=== PATIENT | male | born 1995 | race Caucasian/White ===

== ENCOUNTER 2016-07-05 02:26 | Emergency (ER) | payer OTHER ==
[2016-07-05 02:37] VITALS: RESP 18
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
[2016-07-05 06:06] VITALS: BP 115/71; PULSE 65; TEMP 97.8
== END 2016-07-05 06:06 | disposition home or self-care (01) ==
LOC: EC 02:26
DX: R45.4 Irritability and anger (principal); F43.20 Adjustment disorder, unspecified
CPT/HCPCS: 80306; 82075; 99285

== ENCOUNTER 2018-10-07 21:26 | Inpatient (IN) | payer MEDICARE, OTHER ==
[2018-10-07] MEDS ORDERED: DIPH,PERTUS(ACELL)TETVAC-LF 0.5 ML VIAL IM ONE (21:43)
[2018-10-07] MEDS ORDERED: LORazepam 2 MG/ML INJ IV STA (21:44)
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
[2018-10-07 22:01] LABS: Basophils % (A) 0 %; Eosinophils # (A) 0.1 k/uL (0-0.7); Eosinophils % (A) 1 %; HCT 39.1 % (39.0-53.0); HGB 13.8 gm/dL (13.0-17.5); Lymphocytes # (A) 0.9 k/uL (1.0-4.8); Lymphocytes % (A) 5 %; MCH 30.6 pg (25.0-35.0); MCHC 35.2 g/dL (31.0-37.0); MCV 87.2 fL (80.0-100.0); Monocytes # (A) 0.6 k/uL (0-1.0); Monocytes % (A) 3 %; Neutrophils # (A) 17.6 k/uL (1.3-7.7); Neutrophils % (A) 91 %; Platelet Count 211 k/uL (150-450); RBC 4.49 m/uL (4.30-5.90); RDW 12.9 % (11.5-15.5); WBC 19.3 k/uL (3.8-10.6)
[2018-10-07 22:09] LABS: Anion Gap 15 mmol/L; Blood Urea Nitrogen 13 mg/dL (9-20); Calcium 8.6 mg/dL (8.4-10.2); Carbon Dioxide 18 mmol/L (22-30); Chloride 105 mmol/L (98-107); Glucose 107 mg/dL (74-99); Potassium 3.7 mmol/L (3.5-5.1); Sodium 138 mmol/L (137-145)
[2018-10-07] MEDS ORDERED: KETAMINE 10 MG/ML 20 ML VIAL IV ONE (22:32)
[2018-10-07] MEDS ORDERED: KETAMINE 10 MG/ML 20 ML VIAL IV STA (22:46)
[2018-10-08 00:03] LABS: Amphetamine Screen,Urine Not Detected (NotDetected); Barbiturate Screen,Urine Not Detected (NotDetected); Benzodiazepines Screen,Urine Not Detected (NotDetected); Cocaine Screen,Urine Not Detected (NotDetected); Methadone Screen, Urine Not Detected (NotDetected); Opiate Screen,Urine Not Detected (NotDetected); Oxycodone Screen, Urine Not Detected (NotDetected); Phencyclidine Screen,Urine Not Detected (NotDetected); Tricyclic Antidepressant,Urine Not Detected (NotDetected); Urn Cannabinoid Scrn Not Detected (NotDetected)
[2018-10-08] MEDS ORDERED: MAG HYDROX/AL HYDROX/SIMETH 30 ML CUP PO PRN (03:36)
[2018-10-08] MEDS ORDERED: LORazepam 1 MG TAB PO PRN (03:36)
[2018-10-08] MEDS ORDERED: ZIPRASIDONE 20 MG VIAL IM PRN (03:36)
[2018-10-08] MEDS ORDERED: ACETAMINOPHEN TAB 325 MG TAB PO PRN (03:36)
[2018-10-08] MEDS ORDERED: MAGNESIUM HYDROXIDE 2,400 MG/10 ML CUP PO PRN (03:36)
[2018-10-08] MEDS ORDERED: risperiDONE 2 MG TAB PO SCH ×2 (03:45→21:00)
[2018-10-08 04:21] LABS: Appearance,Urine Clear (Clear); Bilirubin,Urine Negative (Negative); Blood,Urine Small (Negative); Color,Urine Light Yellow; Glucose,Urine (UA) Negative (Negative); Ketones,Urine Negative (Negative); Leukocyte Esterase,Urine Negative (Negative); Mucus,Urine Rare /hpf; Nitrite,Urine Negative (Negative); PH, Urine 5.5 (5.0-8.0); Protein,Urine Negative (Negative); RBC,Urine <1 /hpf (0-5); Specific Gravity,Urine 1.005 (1.001-1.035); Urobilinogen,Urine <2.0 mg/dL (<2.0); WBC,Urine 1 /hpf (0-5)
[2018-10-08] MEDS ORDERED: LIDOCAINE 1% INJ 10MG/ML (20 ML MDV) SQ ONE (10:52)
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
[2018-10-08] MEDS ORDERED: DIPH,PERTUS(ACELL)TETVAC-LF 0.5 ML VIAL IM ONE (13:39)
--- NOTE | 2018-10-08 13:49 | P.HPMEDMHU ---
History of Present Illness H&P Date: 10/08/18 Chief Complaint: left leg bleeding Patient is a 23-year-old male with no known past medical history he was brought in by EMS for lower extremity lacerations. Patient was refusing to tell the ER what happened. He had multiple tayler deployed into his left lower extremity in the ER and was subsequently admitted to the mental health unit. Called by mental health nursing with concerns for bleeding from left lower extremity. Apparently he was actively oozing and squirting blood consult for multiple dressings. Patient seen and examined at bedside in his room. He refuses to answer any questions. He asked me to just "fix his leg so he can later not have the bleed." He will not tell me what happened to his leg or how the lacerations occurred. He was unable to tell me who his PCP is. He would not answer any questions or tell me who he will follow up with. He would not answer my questions about past medical, surgical history, social history, and family history. Information was obtained from review of medical records including prior hospitalization in 2016. Review of prior hospitalization shows history of Lyme's disease, gluten intolerance, possible Gilbert's disease was slightly abnormal bilirubin. Review of Systems Unable to obtain review of systems secondary to patient being noncompliant refusing to answer questions. Past Medical History Additional Past Medical History / Comment(s): Lymes disease. Gluten intolerance. 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 History of Any Multi-Drug Resistant Organisms: None Reported Past Surgical History: Hernia Repair Past Psychological History: No Psychological Hx Reported Smoking Status: Never smoker Past Alcohol Use History: None Reported Past Drug Use History: None Reported - Past Family History Mother History Unknown: Yes Additional Family Medical History / Comment(s): Pt refuses to answer. Father History Unknown: Yes Additional Family Medical History / Comment(s): Pt refuses to answer. Medications and Allergies Home Medications Medication Instructions Recorded Confirmed Type risperiDONE [RisperDAL] 2 mg PO DIRECTED 10/07/18 10/07/18 History Allergies Allergy/AdvReac Type Severity Reaction Status Date / Time No Known Allergies Allergy Verified 10/07/18 21:46 Physical Exam Osteopathic Statement: *. No significant issues noted on an osteopathic structural exam other than those noted in the History and Physical/Consult. Vitals: Vital Signs Temp Pulse Pulse Resp BP BP Pulse Ox 10/08/18 04:17 97.1 F L 111 H 16 127/73 97 10/08/18 03:56 98.5 F 101 H 16 97/54 100 10/08/18 03:50 97/54 10/08/18 03:40 99 14 96/52 10/08/18 03:30 101 H 14 98/52 10/08/18 03:20 102 H 14 92/54 10/08/18 03:10 101 H 14 98/49 10/08/18 03:00 96 15 101/56 10/08/18 02:50 93 16 100/63 10/08/18 02:40 100 17 103/53 10/08/18 02:30 105 H 20 97/57 10/08/18 02:20 125 H 20 101/84 10/08/18 02:00 113 H 16 96/50 10/08/18 01:50 128 H 6 L 100/75 10/08/18 01:40 118 H 18 104/55 10/08/18 01:30 123 H 20 97/58 10/08/18 01:20 116 H 22 94/57 10/08/18 00:50 122 H 16 110/62 10/08/18 00:40 122 H 16 122/86 10/08/18 00:30 135 H 15 110/76 10/08/18 00:20 126 H 8 L 112/87 95 10/08/18 00:10 128 H 8 L 105/74 95 10/08/18 00:00 130 H 22 96/62 95 10/07/18 23:40 131 H 15 126/84 97 10/07/18 23:30 130 H 15 154/96 99 10/07/18 23:25 133 H 16 154/96 99 10/07/18 23:20 145 H 16 148/84 99 10/07/18 23:18 146 H 24 148/84 99 10/07/18 23:15 147 H 16 100 10/07/18 23:10 116 H 10 L 104/67 100 10/07/18 23:00 124 H 22 99/75 10/07/18 22:20 124 H 22 99/75 10/07/18 21:40 107/79 98 10/07/18 21:35 99 10/07/18 21:31 98.1 F 138 H 16 107/7 99 Intake and Output 10/07/18 10/08/18 10/08/18 22:59 06:59 14:59 Other: Weight 64 kg General: non toxic, no distress, appears at stated age, normal weight Derm: Multiple lacerations to left pretibial area approximately 7 laceration each 3 cm in length, tayler in place, continued oozing of blood. no unusual rashes/lesions no unusual ecchymoses, warm, dry Head: atraumatic, normocephalic, symmetric Eyes: EOMI, no lid lag, anicteric sclera, pupils equal round reactive to light ENT: Nose and ears atraumatic, no thrush, no pharyngeal erythema Neck: No thyromegaly, no cervical lymphadenopathy, trachea midline, supple Mouth: no lip lesion, mucus membranes moist Cardiovascular: S1S2 reg, no murmur, positive posterior tibial pulse bilateral, no edema, capillary refill less than 2 seconds Lungs: CTA bilateral, no rhonchi, no rales , no accessory muscle use Abdominal: Patient does not allow me to examine abdominal area Ext: Moving all 4 extremities independently, no gross muscle atrophy or contrac tures Neuro: CN II-XI grossly intact, light touch intact all 4 extremities, Psych: Alert, oriented, appears easily agitated, refuses to answer questions, withdrawn Cranial Nerve Examination - Cranial Nerves Cranial Nerve II- Optic: Intact (refused exam for acuity and visual field and light reflex) Cranial Nerve III- Oculomotor: Intact (refused exam for acuity and visual field and light reflex) Cranial Nerve IV- Trochlear: Intact Cranial Nerve V- Trigeminal: Intact Cranial Nerve - Abducens: Intact Cranial Nerve VII- Facial: Intact Cranial Nerve VIII- Auditory: Intact Cranial Nerve IX- Glossopharyngeal: Intact Cranial Nerve X- Vagus: Intact Cranial Nerve XI- Accessory: Intact Cranial Nerve XII- Hypoglossal: Intact Results CBC & Chem 7: 10/07/18 21:51 10/07/18 21:51 Labs: Abnormal Lab Results - Last 24 Hours (Table) 10/07/18 10/07/18 10/08/18 Range/Units 21:51 21:51 03:56 WBC 19.3 H (3.8-10.6) k/uL Neutrophils # 17.6 H (1.3-7.7) k/uL Lymphocytes # 0.9 L (1.0-4.8) k/uL Carbon Dioxide 18 L (22-30) mmol/L Creatinine 0.56 L (0.66-1.25) mg/dL Glucose 107 H (74-99) mg/dL Urine Blood Small H (Negative) Urine Mucus Rare H (None) /hpf Thrombosis Risk Factor Assmnt - DVT/VTE Prophylaxis DVT/VTE Prophylaxis: Low risk, early ambulation encouraged Assessment and Plan Assessment: Multiple left lower extremity lacerations -Patient already had 44 tayler placed in the ER, secondary to continued bleeding deployed an additional 5 tayler - Keep area covered and dry, change dressing once daily with nursing to assess for drainage, warmth, or dehiscence -Remove tayler in 10-14 days with PCP. Nursing will contact family to dete reji who he will follow with -Had slightly elevated white blood cell count yesterday we'll repeat in a.m. Leukocytosis -Patient uncooperative and physical exam to pinpoint cause of leukocytosis. Nedra jameson stress related due to multiple lacerations. Repeat CBC in a.m. Follow fever profile. acute psychosis - your [facility] Thank you for allowing us to participate in the care of this patient. We will follow peripherally. Do not hesitate to contact us with questions. Someone can be reached from the [facility] hospitalist group at all hours of the day at [phone].
[2018-10-08] MEDS ORDERED: TOPICAL SKIN ADHESIVE 1 EACH AMP TOPICAL ONE (14:56)
[2018-10-08] MEDS ORDERED: LORazepam 2 MG/ML INJ IM PRN (15:08)
[2018-10-08] MEDS: BACITRACIN 500 UNIT/GM OINT 28.4 GM TUBE TOPICAL SCH (18:05)
[2018-10-08] MEDS: PALIPERIDONE 3 MG TAB.ER.24 PO SCH ×2 (21:31→21:33)
[2018-10-09] MEDS: BACITRACIN 500 UNIT/GM OINT 28.4 GM TUBE TOPICAL SCH ×2 (08:29→20:53)
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
[2018-10-09] MEDS ORDERED: flUPHENAZine 2.5 MG/ML (MDV) 10 ML VIAL IM SCH (16:00)
[2018-10-09] MEDS ORDERED: PALIPERIDONE 6 MG TAB.ER.24 PO SCH (21:00)
[2018-10-10] MEDS: BACITRACIN 500 UNIT/GM OINT 28.4 GM TUBE TOPICAL SCH ×2 (13:17→21:35)
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
[2018-10-11] MEDS: BACITRACIN 500 UNIT/GM OINT 28.4 GM TUBE TOPICAL SCH ×2 (09:43→22:55)
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
[2018-10-12] MEDS: BACITRACIN 500 UNIT/GM OINT 28.4 GM TUBE TOPICAL SCH ×3 (08:35→21:23)
--- NOTE | 2018-10-12 15:14 | P.PN ---
Progress Note - Text Progress Note Date: 10/12/18 Interval history: Patient is seen in cross coverage today. I went to the patient's room to inquire regarding meeting with him today, he refuses today. I did inform the patient that I would follow up with him tomorrow. Mental status exam: Patient is found in his room lying in bed. He refuses the meeting today. He did not show any agitation. Plan: We will reattempt to meet with patient tomorrow. We'll continue to cover this patient to the weekend.
[2018-10-13] MEDS: BACITRACIN 500 UNIT/GM OINT 28.4 GM TUBE TOPICAL SCH ×2 (08:20→21:07)
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
[2018-10-14] MEDS: BACITRACIN 500 UNIT/GM OINT 28.4 GM TUBE TOPICAL SCH ×2 (09:31→21:05)
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
[2018-10-15] MEDS: BACITRACIN 500 UNIT/GM OINT 28.4 GM TUBE TOPICAL SCH ×2 (09:06→20:31)
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
[2018-10-16] MEDS: BACITRACIN 500 UNIT/GM OINT 28.4 GM TUBE TOPICAL SCH ×2 (10:50→20:57)
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
[2018-10-16] MEDS ORDERED: diphenhydrAMINE 50 MG/ML 1 ML VIAL IM PRN (16:07)
[2018-10-16] MEDS: chlorproMAZINE 25 MG/ML 2 ML AMP IM PRN (16:37)
[2018-10-17] MEDS: BACITRACIN 500 UNIT/GM OINT 28.4 GM TUBE TOPICAL SCH ×2 (08:37→21:23)
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
[2018-10-17] MEDS ORDERED: LORazepam 2 MG/ML INJ IM PRN (14:38)
[2018-10-17] MEDS ORDERED: PALIPERIDONE 3 MG TAB.ER.24 PO SCH (21:00)
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
[2018-10-18] MEDS: BACITRACIN 500 UNIT/GM OINT 28.4 GM TUBE TOPICAL SCH ×2 (10:00→20:41)
[2018-10-18 11:58] LABS: ALT 26 U/L (21-72); AST 28 U/L (17-59); Albumin 4.2 g/dL (3.5-5.0); Alkaline Phosphatase 46 U/L (38-126); Anion Gap 8 mmol/L; Blood Urea Nitrogen 12 mg/dL (9-20); Calcium 9.4 mg/dL (8.4-10.2); Carbon Dioxide 27 mmol/L (22-30); Chloride 102 mmol/L (98-107); Glucose 83 mg/dL (74-99); Potassium 4.3 mmol/L (3.5-5.1); Sodium 137 mmol/L (137-145); Total Bilirubin 0.7 mg/dL (0.2-1.3); Total Protein 6.2 g/dL (6.3-8.2)
[2018-10-18 12:02] LABS: Basophils % (A) 0 %; Eosinophils # (A) 0.1 k/uL (0-0.7); Eosinophils % (A) 1 %; HCT 36.4 % (39.0-53.0); HGB 12.3 gm/dL (13.0-17.5); Lymphocytes % (A) 21 %; MCH 30.8 pg (25.0-35.0); MCHC 33.8 g/dL (31.0-37.0); MCV 91.1 fL (80.0-100.0); Mean Platelet Volume 7.5; Monocytes # (A) 0.3 k/uL (0-1.0); Monocytes % (A) 7 %; Neutrophils # (A) 3.2 k/uL (1.3-7.7); Neutrophils % (A) 69 %; Platelet Count 272 k/uL (150-450); Poikilocytosis Slight; RBC 3.99 m/uL (4.30-5.90); RDW 14.9 % (11.5-15.5); WBC 4.6 k/uL (3.8-10.6)
[2018-10-18] MEDS: PALIPERIDONE 6 MG TAB.ER.24 PO SCH (20:41)
[2018-10-19] MEDS: BACITRACIN 500 UNIT/GM OINT 28.4 GM TUBE TOPICAL SCH ×2 (08:37→21:18)
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
[2018-10-19] MEDS: PALIPERIDONE 6 MG TAB.ER.24 PO SCH (21:12)
[2018-10-20] MEDS: BACITRACIN 500 UNIT/GM OINT 28.4 GM TUBE TOPICAL SCH ×2 (07:58→21:36)
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
[2018-10-20] MEDS: PALIPERIDONE 6 MG TAB.ER.24 PO SCH (21:31)
[2018-10-21] MEDS: BACITRACIN 500 UNIT/GM OINT 28.4 GM TUBE TOPICAL SCH ×3 (09:19→22:09)
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
[2018-10-21] MEDS: chlorproMAZINE 25 MG/ML 2 ML AMP IM PRN (22:25)
[2018-10-21] MEDS: PALIPERIDONE 3 MG TAB.ER.24 PO SCH (22:25)
[2018-10-22] MEDS: BACITRACIN 500 UNIT/GM OINT 28.4 GM TUBE TOPICAL SCH ×2 (09:01→23:06)
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
[2018-10-22] MEDS: PALIPERIDONE 3 MG TAB.ER.24 PO SCH (22:14)
[2018-10-23] MEDS: BACITRACIN 500 UNIT/GM OINT 28.4 GM TUBE TOPICAL SCH ×2 (09:40→20:38)
[2018-10-23] MEDS ORDERED: PALIPERIDONE IM 234 MG/1.5 ML SYG IM STA (12:16)
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
[2018-10-24] MEDS: BACITRACIN 500 UNIT/GM OINT 28.4 GM TUBE TOPICAL SCH ×2 (09:02→22:13)
[2018-10-24 10:14] VITALS: BMI 19.8
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
[2018-10-25] MEDS: BACITRACIN 500 UNIT/GM OINT 28.4 GM TUBE TOPICAL SCH ×2 (09:54→20:19)
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
[2018-10-26 06:49] VITALS: RESP 16
[2018-10-26] MEDS: BACITRACIN 500 UNIT/GM OINT 28.4 GM TUBE TOPICAL SCH ×2 (08:06→20:55)
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
[2018-10-27] MEDS: BACITRACIN 500 UNIT/GM OINT 28.4 GM TUBE TOPICAL SCH ×2 (08:52→22:03)
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
[2018-10-28 07:08] VITALS: BP 98/55; PULSE 66; TEMP 97.8
[2018-10-28] MEDS: BACITRACIN 500 UNIT/GM OINT 28.4 GM TUBE TOPICAL SCH ×2 (08:46→21:51)
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
[2018-10-28] MEDS: PALIPERIDONE 3 MG TAB.ER.24 PO SCH (21:49)
[2018-10-29] MEDS: BACITRACIN 500 UNIT/GM OINT 28.4 GM TUBE TOPICAL SCH ×2 (09:44→21:31)
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
[2018-10-29] MEDS: PALIPERIDONE 3 MG TAB.ER.24 PO SCH (20:43)
[2018-10-30] MEDS: BACITRACIN 500 UNIT/GM OINT 28.4 GM TUBE TOPICAL SCH (08:09)
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
--- NOTE | 2018-10-31 11:04 | CDI ---
Documentation Clarification Form Date: 10/31/2018 10:51:25 AM From: Rosana Newman Phone: If you have a question about this query, please contact Radha [employer] Consultant at [phone] between 8am and 5pm. Admit Date: 10/08/2018 3:32:00 AM Patient Name: Yifan Hubbard Visit Number: [id number] Discharge Date: 10/30/2018 1:46:00 PM ATTENTION: The Clinical Documentation Specialists (CDI) and [facility] Coding Staff appreciate your assistance in clarifying documentation. Please respond to the clarification below the line at the bottom and electronically sign. The CDI & [facility] Coding staff will review the response and follow-up if needed. Please note: Queries are made part of the Legal Health Record. If you have any questions, please contact the author of this message via ITS. Dr. Pepito Villarreal: ER Procedure notes document [address] for multiple lacerations of lower extremity. Please specify which part of lower of extremeity and whether it was right, left or bilateral. History/Risk factors: Right though laceration, medial left LE laceration, right lateral laceration LE Pre-Operative Diagnosis:Laceration Postoperative Diagnosis: Laceratioin Treatment: 44 tayler placed In order to capture the severity of condition, please specify the following: Anatomical site of the body system on which the procedure is performed Lower extremity: Upper leg Lower leg Foot Laterality: Right Left Bilateral MTDD
== END 2018-10-30 13:46 | disposition home or self-care (01) | DRG 885 ==
LOC: EC 21:26 → 3MHU 10-08 03:32
PROVIDERS: ADMIT Psychiatry & Neurology Psychiatry; ATTEND Psychiatry & Neurology Psychiatry
PROC: 0JQP3ZZ Repair Left Lower Leg Subcutaneous Tissue and Fascia, Percutaneous Approach (ICD-10-PCS; principal; 2018-10-08)
PROC: 0JQ Subcutaneous Tissue and Fascia, Repair (ICD-10-PCS; 2018-10-08)
DX: F20.9 Schizophrenia, unspecified (principal); R45.851 Suicidal ideations; K90.41 Non-celiac gluten sensitivity; S71.111A Laceration without foreign body, right thigh, initial encounter; S81.812A Laceration without foreign body, left lower leg, initial encounter; F84.5 Asperger's syndrome; Z86.19 Personal history of other infectious and parasitic diseases; Y28.9XXA Contact with unspecified sharp object, undetermined intent, initial encounter; Z79.899 Other long term (current) drug therapy; E80.4 Gilbert syndrome; D72.829 Elevated white blood cell count, unspecified
CPT/HCPCS: 12001; 36415; 80048; 80053; 80306; 80320; 81001; 84443; 85025; 96374; 99152; 99285

== ENCOUNTER → 2019-03-26 | Outpatient (CLI) | payer MEDICARE, OTHER ==
[2019-03-26 18:05] LABS: Albumin 4.4 g/dL (3.80-4.90); Albumin/Globulin Ratio 2.59 (1.60-3.17); Anion Gap 11.8 mmol/L (4.00-12.00); BUN/Creat Ratio 16.25 Ratio (12.00-20.00); Bilirubin, Conjugated 0.2 mg/dL (0.20-0.40); Bilirubin,Unconjugated 0.7 mg/dL; Calcium 9.3 mg/dL (8.7-10.3); Carbon Dioxide 22.2 mmol/L (21.6-31.8); Chol/HDL Ratio 6.31; Globulin 1.7 g/dL (1.6-3.3); LDL Cholesterol,Calculated 157.2 mg/dL (0.0-131.0); Potassium 4.6 mmol/L (3.5-5.5); Total Bilirubin 0.9 mg/dL (0.3-1.2); Total Protein 6.1 g/dL (6.2-8.2); VLDL Calculation 33.8 mg/dL (5.00-40.00)
[2019-03-26 18:30] LABS: Hemoglobin A1C 4.1 % (4.0-6.0)
== END ==
LOC: LABWHC1 09:57
PROVIDERS: ATTEND Psychiatry & Neurology Psychiatry
DX: Z51.81 Encounter for therapeutic drug level monitoring (principal); Z79.899 Other long term (current) drug therapy
CPT/HCPCS: 36415; 80048; 80061; 80076; 83036; 84439; 84443

== ENCOUNTER → 2019-06-17 | Outpatient (CLI) | payer MEDICARE, OTHER | LOC: LABWHC1 10:38 | PROVIDERS: ATTEND Psychiatry & Neurology Psychiatry | DX: Z51.81 Encounter for therapeutic drug level monitoring (principal); Z79.899 Other long term (current) drug therapy | CPT/HCPCS: 36415; 84146 ==

== ENCOUNTER → 2019-12-23 | Outpatient (CLI) | payer MEDICARE, OTHER ==
[2019-12-23 17:04] LABS: Chol/HDL Ratio 6.13
[2019-12-23 17:13] LABS: T4, Free (Free Thyroxine) 1.5 ng/dL (0.80-1.80)
[2019-12-23 18:47] LABS: Hemoglobin A1C 4.6 % (4.0-6.0)
== END | disposition home or self-care (01) ==
LOC: LABWHC1 10:43
PROVIDERS: ATTEND Psychiatry & Neurology Psychiatry
DX: Z51.81 Encounter for therapeutic drug level monitoring (principal); Z79.899 Other long term (current) drug therapy
CPT/HCPCS: 36415; 80061; 80342; 82947; 83036; 84146; 84439; 84443

== ENCOUNTER → 2020-11-24 | Outpatient (CLI) | payer MEDICARE, OTHER ==
[2020-11-24 22:32] LABS: Hemoglobin A1C 4.6 % (4.0-6.0)
[2020-11-25 00:32] LABS: Chol/HDL Ratio 5.59; LDL Cholesterol,Calculated 70.4 mg/dL (0.0-131.0); VLDL Calculation 53.6 mg/dL (5.00-40.00)
[2020-11-25 00:40] LABS: T4, Free (Free Thyroxine) 1.3 ng/dL (0.80-1.80)
== END | disposition home or self-care (01) ==
LOC: LABWHC1 11:29
PROVIDERS: ATTEND Psychiatry & Neurology Psychiatry
DX: Z79.899 Other long term (current) drug therapy (principal)
CPT/HCPCS: 36415; 80061; 82947; 83036; 84439; 84443

== ENCOUNTER → 2022-01-10 | Outpatient (CLI) | payer MEDICARE, OTHER ==
[2022-01-10 18:53] LABS: Chol/HDL Ratio 6.67 Ratio; Glucose 99 mg/dL (70-110); LDL Cholesterol,Calculated 111.2 mg/dL (0.0-131.0)
== END | disposition home or self-care (01) ==
LOC: LABWHC1 11:24
PROVIDERS: ATTEND Psychiatry & Neurology Psychiatry
DX: F20.9 Schizophrenia, unspecified (principal); Z79.899 Other long term (current) drug therapy
CPT/HCPCS: 36415; 80061; 82947; 83036; 84439; 84443

== ENCOUNTER → 2023-08-14 | Outpatient (CLI) | payer MEDICARE ==
[2023-08-14 16:13] LABS: ALT 128 U/L (10-49); AST 43 U/L (14-35); Albumin 4.5 g/dL (3.8-4.9); Albumin/Globulin Ratio 2.25 Ratio (1.60-3.17); Alkaline Phosphatase 77 U/L (41-126); BUN/Creat Ratio 15.43 Ratio (12.00-20.00); Blood Urea Nitrogen 10.8 mg/dL (9.0-27.0); Calcium 9.6 mg/dL (8.7-10.3); Carbon Dioxide 22.9 mmol/L (21.6-31.8); Chloride 104 mmol/L (96-109); Chol/HDL Ratio 7.49 Ratio; Glucose 93 mg/dL (70-110); LDL Cholesterol,Calculated 102.5 mg/dL (0.0-131.0); Potassium 4.2 mmol/L (3.5-5.5); Sodium 140 mmol/L (135-145); T4, Free (Free Thyroxine) 1.07 ng/dL (0.80-1.80); Total Bilirubin 0.3 mg/dL (0.3-1.2); Total Protein 6.5 g/dL (6.2-8.2)
[2023-08-14 16:20] LABS: Basophils # (A) 0.04 X 10*3/uL (0.00-0.10); Basophils % (A) 0.7 %; Eosinophils # (A) 0.12 X 10*3/uL (0.04-0.35); HCT 45.3 % (39.6-50.0); HGB 15.9 g/dL (13.0-17.0); Lymphocytes # (A) 2.25 X 10*3/uL (0.90-5.00); Lymphocytes % (A) 36.6 %; MCH 29.4 pg (27.0-32.0); MCHC 35.1 g/dL (32.0-37.0); MCV 83.7 FL (80.0-97.0); Mean Platelet Volume 11.4 FL (9.5-12.2); Monocytes # (A) 0.62 X 10*3/uL (0.20-1.00); Monocytes % (A) 10.1 %; NRBC Per 100 WBC 0 X 10*3/uL (0.00-0.01); Neutrophils # (A) 3.09 X 10*3/uL (1.80-7.70); Neutrophils % (A) 50.3 %; Platelet Count 195 X 10*3/uL (140-440); RBC 5.41 X 10*6/uL (4.40-5.60); RDW 12.4 % (11.5-14.5); WBC 6.14 X 10*3/uL (4.50-10.00)
== END | disposition home or self-care (01) ==
LOC: LABWHC1 09:09
PROVIDERS: ATTEND Psychiatry & Neurology Psychiatry
DX: F20.9 Schizophrenia, unspecified (principal); Z79.899 Other long term (current) drug therapy
CPT/HCPCS: 36415; 80053; 80061; 82306; 83036; 84146; 84439; 84443; 85025

== ENCOUNTER 2023-09-23 04:23 | Emergency (ER) | payer MEDICARE ==
--- NOTE | 2023-09-23 04:30 | ED ---
Psych HPI <Tami Hudson - Last Filed: 09/23/23 21:13> - General Source: RN notes reviewed, old records reviewed Limitations: no limitations, altered mental status - History of Present Illness MD Complaint: suicidal ideation, feels depressed -: days(s) Associated Psychiatric Symptoms: depression, suicidal ideation History of same: Yes Quality: constant, getting worse Improves With: none Worsens With: none Associated Symptoms: denies other symptoms Treatments Prior to Arrival: placed on mental health hold If Self Harm: admits thoughts of self harm <Nagi Gonzalez - Last Filed: 10/02/23 22:33> - General Stated Complaint: Mental Health Time Seen by Provider: 09/23/23 04:28 - History of Present Illness Initial Comments: This is a 28-year-old male for ER, patient is acutely psychotic. Patient arrives for mental health disease, patient states he has concern for Lyme dis ease or measles (Nagi Gonzalez) - Related Data Previous Rx's Medication Instructions Recorded Paliperidone [Invega] 3 mg PO 2100 30 Days #30 tab.er.[id number] 10/30/18 Allergies Allergy/AdvReac Type Severity Reaction Status Date / Time No Known Allergies Allergy Verified 10/30/18 00:59 Review of Systems ROS Other: All systems not noted in ROS Statement are negative. <Tami Hudson P - Last Filed: 09/23/23 21:13> ROS Other: All systems not noted in ROS Statement are negative. <Nagi Gonzalez - Last Filed: 10/02/23 22:33> ROS Statement: Those systems with pertinent positive or pertinent negative responses have been documented in the HPI. Past Medical History Past Medical History: No Reported History Additional Past Medical History / Comment(s): Lymes disease. History of Any Multi-Drug Resistant Organisms: None Reported Past Surgical History: Hernia Repair Past Psychological History: No Psychological Hx Reported Past Alcohol Use History: None Reported Past Drug Use History: None Reported - Past Family History Mother History Unknown: Yes Additional Family Medical History / Comment(s): Pt refuses to answer. Father History Unknown: Yes Additional Family Medical History / Comment(s): Pt refuses to answer. <Nagi Gonzalez - Last Filed: 10/02/23 22:33> General Exam General appearance: alert, in no apparent distress Head exam: Present: atraumatic, normocephalic, normal inspection Eye exam: Present: normal appearance, PERRL, EOMI. Absent: scleral icterus, conjunctival injection, periorbital swelling ENT exam: Present: normal exam, mucous membranes moist Neck exam: Present: normal inspection. Absent: tenderness, meningismus, lymphadenopathy Respiratory exam: Present: normal lung sounds bilaterally. Absent: respiratory distress, wheezes, rales, rhonchi, stridor Cardiovascular Exam: Present: regular rate, normal rhythm, normal heart sounds. Absent: systolic murmur, diastolic murmur, rubs, gallop, clicks GI/Abdominal exam: Present: soft, normal bowel sounds. Absent: distended, tenderness, guarding, rebound, rigid Extremities exam: Present: normal inspection, full ROM, normal capillary refill. Absent: tenderness, pedal edema, joint swelling, calf tenderness Back exam: Present: normal inspection Neurological exam: Present: alert, oriented X3, CN II-XII intact Psychiatric exam: Present: normal affect, normal mood Skin exam: Present: warm, dry, intact, normal color. Absent: rash <Nagi Gonzalez - Last Filed: 10/02/23 22:33> Course <Nagi Gonzalez - Last Filed: 10/02/23 22:33> Vital Signs 09/23/23 09/23/23 09/23/23 04:30 05:06 17:55 Temperature 97.8 F 97.6 F Pulse Rate 112 H 104 H Respiratory 16 16 18 Rate Blood Pressure 151/109 139/99 130/86 O2 Sat by Pulse 98 97 Oximetry 09/23/23 09/23/23 19:30 21:59 Temperature 97.5 F L 97.9 F Pulse Rate 99 99 Respiratory 13 13 Rate Blood Pressure 126/90 134/98 O2 Sat by Pulse 97 98 Oximetry - Reevaluation(s) Reevaluation #1: 09/23/23 07:14 Medical records reviewed (Nagi Gonzalez) Reevaluation #2: 09/23/23 07:14 Medically cleared for psychiatric evaluation (Nagi Gonzalez) Medical Decision Making - Lab Data Result diagrams: 09/23/23 13:26 09/23/23 13:26 <Tami Hudson - Last Filed: 09/23/23 21:13> - Lab Data Result diagrams: 09/23/23 13:26 09/23/23 13:26 <Nagi Gonzalez - Last Filed: 10/02/23 22:33> - Medical Decision Making Was patient admitted / discharged? Hospital course, mention meds given and route, prescriptions, significant lab abnormalities, going to OR and other pertinent info. @ -Transfer to psychiatric hospital Patient was initially seen and evaluated by Dr. Lyons. I took over care of pending workup and disposition. Patient was medically cleared for EPS evaluation and they recommended inpatient care. Upon my evaluation the patient admits to auditory hallucinations and having fits of rage due to these hallucinations. I completed a psychiatric certification form. Patient will be transferred for acute psychosis. Undiagnosed new problem with uncertain prognosis? @ -Yes Drug Therapy requiring intensive monitoring for toxicity (Heparin, Nitro, Insulin, Cardizem)? @ -No Were any procedures done? @ -No Diagnosis/symptom? @ -Acute psychosis Acute, or Chronic, or Acute on Chronic? @ -Acute Uncomplicated (without systemic symptoms) or Complicated (systemic symptoms)? @ -Default Side effects of treatment? @ -No Exacerbation, Progression, or Severe Exacerbation? @ -No Poses a threat to life or bodily function? How? (Chest pain, [place], [place], pneumonia, PE, COPD, DKA, ARF, appy, cholecystitis, CVA, Diverticulitis, Homicidal, Suicidal, threat to staff... and all critical care pts) @ -Yes could result in injury to self or others (Tami Hudson) - Lab Data Lab Results 09/23/23 09/23/23 09/23/23 Range/Units 13:26 13:26 13:26 WBC 6.0 (3.8-10.6) k/uL RBC 5.11 (4.30-5.90) m/uL Hgb 15.6 (13.0-17.5) gm/dL Hct 44.4 (39.0-53.0) % MCV 86.9 (80.0-100.0) fL MCH 30.6 (25.0-35.0) pg MCHC 35.2 (31.0-37.0) g/dL RDW 13.0 (11.5-15.5) % Plt Count 173 (150-450) k/uL MPV 9.0 Sodium 138 (137-145) mmol/L Potassium 3.8 (3.5-5.1) mmol/L Chloride 104 (98-107) mmol/L Carbon Dioxide 20 L (22-30) mmol/L Anion Gap 14 mmol/L BUN 11 (9-20) mg/dL Creatinine 0.75 (0.66-1.25) mg/dL Est GFR (CKD-EPI)AfAm >90 (>60 ml/min/1.73 sqM) Est GFR (CKD-EPI)NonAf >90 (>60 ml/min/1.73 sqM) Glucose 136 H (74-99) mg/dL Calcium 9.6 (8.4-10.2) mg/dL Total Bilirubin 0.6 (0.2-1.3) mg/dL AST 44 (17-59) U/L ALT 90 H (4-49) U/L Alkaline Phosphatase 72 (38-126) U/L Total Protein 6.7 (6.3-8.2) g/dL Albumin 4.4 (3.5-5.0) g/dL Urine Opiates Screen Not Detected (NotDetected) Ur Oxycodone Screen Not Detected (NotDetected) Urine Methadone Screen Not Detected (NotDetected) Ur Barbiturates Screen Not Detected (NotDetected) U Tricyclic Antidepress Not Detected (NotDetected) Ur Phencyclidine Scrn Not Detected (NotDetected) Ur Amphetamines Screen Not Detected (NotDetected) U Methamphetamines Scrn Not Detected (NotDetected) U Benzodiazepines Scrn Not Detected (NotDetected) Urine Cocaine Screen Not Detected (NotDetected) U Marijuana (THC) Screen Not Detected (NotDetected) SARS-CoV-2 (PCR) (Not Detectd) 09/23/23 Range/Units 14:03 WBC (3.8-10.6) k/uL RBC (4.30-5.90) m/uL Hgb (13.0-17.5) gm/dL Hct (39.0-53.0) % MCV (80.0-100.0) fL MCH (25.0-35.0) pg MCHC (31.0-37.0) g/dL RDW (11.5-15.5) % Plt Count (150-450) k/uL MPV Sodium (137-145) mmol/L Potassium (3.5-5.1) mmol/L Chloride (98-107) mmol/L Carbon Dioxide (22-30) mmol/L Anion Gap mmol/L BUN (9-20) mg/dL Creatinine (0.66-1.25) mg/dL Est GFR (CKD-EPI)AfAm (>60 ml/min/1.73 sqM) Est GFR (CKD-EPI)NonAf (>60 ml/min/1.73 sqM) Glucose (74-99) mg/dL Calcium (8.4-10.2) mg/dL Total Bilirubin (0.2-1.3) mg/dL AST (17-59) U/L ALT (4-49) U/L Alkaline Phosphatase (38-126) U/L Total Protein (6.3-8.2) g/dL Albumin (3.5-5.0) g/dL Urine Opiates Screen (NotDetected) Ur Oxycodone Screen (NotDetected) Urine Methadone Screen (NotDetected) Ur Barbiturates Screen (NotDetected) U Tricyclic Antidepress (NotDetected) Ur Phencyclidine Scrn (NotDetected) Ur Amphetamines Screen (NotDetected) U Methamphetamines Scrn (NotDetected) U Benzodiazepines Scrn (NotDetected) Urine Cocaine Screen (NotDetected) U Marijuana (THC) Screen (NotDetected) SARS-CoV-2 (PCR) Not Detected (Not Detectd) Disposition <Tami Hudson P - Last Filed: 09/23/23 21:13> Is patient prescribed a controlled substance at d/c from ED?: No <Nagi Gonzalez - Last Filed: 10/02/23 22:33> Clinical Impression: Acute psychosis, Suicidal behavior, Acute anxiety, Depression Disposition: TRANSFER TO PSYCH HOSP/UNIT Condition: Good Referrals: Marsha England NPC [Primary Care Provider] - 1-2 days
[2023-09-23 14:06] LABS: HCT 44.4 % (39.0-53.0); HGB 15.6 gm/dL (13.0-17.5); MCH 30.6 pg (25.0-35.0); MCHC 35.2 g/dL (31.0-37.0); MCV 86.9 fL (80.0-100.0); Platelet Count 173 k/uL (150-450); RBC 5.11 m/uL (4.30-5.90)
[2023-09-23 14:34] LABS: ALT 90 U/L (4-49); AST 44 U/L (17-59); African American GFR (CKD) >90 (>60 ml/min/1.73 sqM); Albumin 4.4 g/dL (3.5-5.0); Alkaline Phosphatase 72 U/L (38-126); Anion Gap 14 mmol/L; Blood Urea Nitrogen 11 mg/dL (9-20); Calcium 9.6 mg/dL (8.4-10.2); Carbon Dioxide 20 mmol/L (22-30); Chloride 104 mmol/L (98-107); Glucose 136 mg/dL (74-99); Non-African American GFR(CKD) >90 (>60 ml/min/1.73 sqM); Potassium 3.8 mmol/L (3.5-5.1); Sodium 138 mmol/L (137-145); Total Bilirubin 0.6 mg/dL (0.2-1.3); Total Protein 6.7 g/dL (6.3-8.2)
[2023-09-23 15:23] LABS: Amphetamine Screen,Urine Not Detected (NotDetected); Barbiturate Screen,Urine Not Detected (NotDetected); Benzodiazepines Screen,Urine Not Detected (NotDetected); Cocaine Screen,Urine Not Detected (NotDetected); Methadone Screen, Urine Not Detected (NotDetected); Opiate Screen,Urine Not Detected (NotDetected); Oxycodone Screen, Urine Not Detected (NotDetected); Phencyclidine Screen,Urine Not Detected (NotDetected); Tricyclic Antidepressant,Urine Not Detected (NotDetected); Urn Cannabinoid Scrn Not Detected (NotDetected)
[2023-09-23 19:45] VITALS: PULSE 99; RESP 13
[2023-09-23 22:06] VITALS: BP 134/98; TEMP 97.9
== END 2023-09-23 22:24 ==
LOC: EC 04:23
DX: F23 Brief psychotic disorder (principal); F32.A Depression, unspecified; F41.9 Anxiety disorder, unspecified; Z91.51 Personal history of suicidal behavior; Z11.52 Encounter for screening for COVID-19
CPT/HCPCS: 36415; 80053; 80306; 82075; 85027; 87635; 99285

== ENCOUNTER 2023-10-09 17:12 | Emergency (ER) | payer OTHER, MEDICARE ==
[2023-10-09 17:42] VITALS: TEMP 97.8
--- NOTE | 2023-10-09 17:56 | ED ---
General Adult HPI - General Source: patient Mode of arrival: wheelchair Limitations: no limitations <Stewart Hernandez - Last Filed: 10/09/23 21:22> <Stewart Levy - Last Filed: 10/10/23 01:27> - General Chief complaint: Psychiatric Symptoms Stated complaint: Medication issue-Weakness,abd pain Time Seen by Provider: 10/09/23 17:36 - History of Present Illness Initial comments: This 28-year-old male presents with mother with 2 issues. He does complain of some diffuse abdominal pain which started this morning. He had a couple episodes of vomiting. He denies any fevers or chills. He does relate that he has chronic constipation. He was able to have a small bowel movement earlier today. The patient denies any urinary symptoms. No history of previous similar incidents. He has a second complaint of that of some auditory hallucinations. He states that he hears some voices. He thinks that this could be his neighbors trying to keep track of him. He states that it is very annoying and seems bett er if he puts in his earplugs. He denies any visual hallucinations. He does have a history of schizophrenia for the last 3 years. He has been hospitalized at [facility] (formerly [facility]) within the past several weeks. They put him on some medication which seemed to improve his symptoms but now it is worse once again over the last day or so. He denies any depression or suicidal ideations. He is somewhat anxious. He has been taking Haldol which seemed to have been improving. He also was on Invega injections. No other complaints or modifying factors. (Stewart Hernandez) - Related Data Home Medications Medication Instructions Recorded Confirmed Benztropine Mesylate [Cogentin] 1 mg PO BID 10/09/23 10/09/23 OXcarbazepine 300 mg PO BID 10/09/23 10/09/23 Paliperidone IM [Invega Sustenna] 234 mg IM Q28D 10/09/23 10/09/23 gemfibroziL [Lopid] 600 mg PO BID 10/09/23 10/09/23 haloperidoL [Haldol] 5 mg PO DAILY 10/09/23 10/09/23 haloperidoL [Haldol] 10 mg PO HS 10/09/23 10/09/23 Allergies Allergy/AdvReac Type Severity Reaction Status Date / Time No Known Allergies Allergy Verified 10/09/23 19:21 Review of Systems ROS Other: All systems not noted in ROS Statement are negative. <Stewart Hernandez - Last Filed: 10/09/23 21:22> ROS Other: All systems not noted in ROS Statement are negative. <Stewart Levy - Last Filed: 10/10/23 01:27> ROS Statement: Those systems with pertinent positive or pertinent negative responses have been documented in the HPI. Past Medical History Past Medical History: No Reported History Additional Past Medical History / Comment(s): Lymes disease. History of Any Multi-Drug Resistant Organisms: None Reported Past Surgical History: Hernia Repair Past Psychological History: No Psychological Hx Reported Past Alcohol Use History: None Reported Past Drug Use History: None Reported - Past Family History Mother History Unknown: Yes Additional Family Medical History / Comment(s): Pt refuses to answer. Father History Unknown: Yes Additional Family Medical History / Comment(s): Pt refuses to answer. <Stewart Hernandez - Last Filed: 10/09/23 21:22> General Exam Limitations: no limitations <Stewart Hernandez - Last Filed: 10/09/23 21:22> - General Exam Comments Initial Comments: GENERAL: The patient is well nourished and well hydrated. VITAL SIGNS: Heart rate, blood pressure, respiratory rate reviewed as recorded in nurse's notes. EYES: Pupils are round and reactive. Extraocular movements are intact. No conjunctival / lid redness or swelling. ENT: No external evidence of injury, swelling, or ecchymosis. Airway is patent. Throat is clear. NECK: Nontender. No swelling or evidence of injury. No subcutaneous emphysema. Trachea is midline. No thyroid mass. HEART: Regular rate and rhythm. Good peripheral pulses. LUNGS/CHEST: Breath sounds clear and equal bilaterally. No rales, rhonchi, or wheezes. No ecchymosis, subcutaneous emphysema, or tenderness. ABDOMEN: Abdomen soft with mild tenderness noted more so to the lower abdomen bilaterally. No palpable masses or organomegaly. No peritoneal signs. No abdominal wall swelling or ecchymosis. EXTREMITIES: No extremity tenderness. Normal muscle tone and function. No thoracolumbar tenderness. NEUROLOGIC: Sensation is grossly intact. Cranial nerve exam reveals face is symmetrical, tongue is midline, speech is clear. SKIN: No abrasions or ecchymosis is noted. No induration or masses noted. PSYCHIATRIC: Alert and cooperative but does appear to be somewhat anxious. (Stewart Hernandez) Course Vital Signs 10/09/23 10/09/23 10/09/23 17:26 19:02 23:09 Temperature 97.8 F Pulse Rate 123 H 117 H 106 H Respiratory 18 16 19 Rate Blood Pressure 153/92 154/103 O2 Sat by Pulse 96 96 94 L Oximetry 10/09/23 23:26 Temperature Pulse Rate 104 H Respiratory 17 Rate Blood Pressure 144/99 O2 Sat by Pulse 95 Oximetry Medical Decision Making - Lab Data Result diagrams: 10/09/23 18:11 10/09/23 18:11 <Stewart Hernandez - Last Filed: 10/09/23 21:22> - Lab Data Result diagrams: 10/09/23 18:11 10/09/23 18:11 <Stewart Levy - Last Filed: 10/10/23 01:27> - Medical Decision Making The patient was seen and examined. Mother is present and does help with history. Old records also are reviewed from several weeks ago where he was transferred to [facility] ([facility]) for psychosis. He does receive an IV with some fluid hydration as well as some Zofran, Toradol, and Ativan intravenously. Laboratory is reviewed which does show a mild hyperglycemia. There is slight decrease in the CO2. The CT scan of the abdomen pelvis overall does not show any acute significant abnormalities per my interpretation and radiologist interpretation. Patient is feeling remarkably improved in regards to his GI symptoms on recheck. He states that he is still hearing voices. Patient is medically cleared for further psychiatric evaluation. It is felt as though he may be having some somatic complaints complicated by his psychiatric problems. It is felt as though the Ativan did help him a fair amount as well. He appears to have less anxiety. We are currently awaiting the psychiatric team evaluation. Patient is medically cleared for further evaluation. Further care will be passed on to oncoming physician. Was pt. sent in by a medical professional or institution (, PA, PAI GOW DEALER, urgent care, hospital, or group home...) When possible be specific @ -No Did you speak to anyone other than the patient for history (EMS, parent, family, police, friend...)? What history was obtained from this source @ -Patient's mother is present who is an excellent historian and does help with history. Did you review nursing and triage notes (agree or disagree)? Why? @ -I reviewed and agree with nursing and triage notes Were old charts reviewed (outside hosp., previous admission, EMS record, old EKG, old radiological studies, urgent care reports/EKG's, group home records)? Report findings @ -Old charts were reviewed from several weeks ago and patient appears to have had similar symptoms with psychosis diagnosis at that time and transferred to [facility] ([facility] Differential Diagnosis (chest pain, altered mental status, abdominal pain women, abdominal pain men, vaginal bleeding, weakness, fever, dyspnea, syncope, headache, dizziness, GI bleed, back pain, seizure, CVA, palpatations, mental health, musculoskeletal)? @ -Schizophrenia, psychosis, abdominal pain, nausea and vomiting, anxiety. EKG interpreted by me (3pts min.). @ -None X-rays interpreted by me (1pt min.). @ -None done CT interpreted by me (1pt min.). @ -As above U/S interpreted by me (1pt. min.). @ -None done What testing was considered but not performed or refused? (CT, X-rays, U/S, labs)? Why? @ -None What meds were considered but not given or refused? Why? @ -None Did you discuss the management of the patient with other professionals (professionals i.e. , PA, PAI GOW DEALER, lab, RT, psych nurse, certified social workers in health care, commercial housekeeper, teacher, court collections officer, medical case manager)? Give summary @ -Case is discussed with ER physician who will take over care at shift change. Was smoking cessation discussed for >3mins.? @ -No Was critical care preformed (if so, how long)? @ -No Were there social determinants of health that impacted care today? How? (Homelessness, low income, unemployed, alcoholism, drug addiction, tr ansportation, low edu. Level, literacy, decrease access to med. care, chcf, rehab)? @ -Patient psychiatric condition likely impacts patient's care from a social standpoint. Was there de-escalation of care discussed even if they declined (Discuss DNR or withdrawal of care, Hospice)? DNR status @ -No What co-morbidities impacted this encounter? (DM, HTN, Smoking, COPD, CAD, Cancer, CVA, ARF, Chemo, Hep., AIDS, mental health diagnosis, sleep apnea, morbid obesity)? @ -Schizophrenia Was patient admitted / discharged? Hospital course, mention meds given and route, prescriptions, significant lab abnormalities, going to OR and other pertinent info. @ -Patient is currently awaiting evaluation by psychiatric nurse to determine psychiatric placement. Please see above. Undiagnosed new problem with uncertain prognosis? @ -No Drug Therapy requiring intensive monitoring for toxicity (Heparin, Nitro, Insulin, Cardizem)? @ -No Were any procedures done? @ -No Diagnosis/symptom? @ -Acute psychosis, auditory hallucinations, abdominal pain, nausea and vomiting, schizophrenia. Acute, or Chronic, or Acute on Chronic? @ -Acute on chronic Uncomplicated (without systemic symptoms) or Complicated (systemic symptoms)? @ -Uncomplicated Side effects of treatment? @ -No Exacerbation, Progression, or Severe Exacerbation? @ -No Poses a threat to life or bodily function? How? (Chest pain, [place], [place], pneumonia, PE, COPD, DKA, ARF, appy, cholecystitis, CVA, Diverticulitis, Homicidal, Suicidal, threat to staff... and all critical care pts) @ -No (Stewart Hernandez) Patient has been medically cleared and evaluated by the previous physician, was evaluated by EPS for hearing voices. He is planned to see [facility] tomorrow and has planned injection for tomorrow. He is eager for discharge and has been cleared by EPS for discharge. Suicidal or homicidal abiola ation. (Stewart Levy) - Lab Data Lab Results 10/09/23 10/09/23 10/09/23 Range/Units 18:11 18:11 18:11 WBC 6.6 (3.8-10.6) k/uL RBC 5.49 (4.30-5.90) m/uL Hgb 16.2 (13.0-17.5) gm/dL Hct 47.1 (39.0-53.0) % MCV 85.8 (80.0-100.0) fL MCH 29.6 (25.0-35.0) pg MCHC 34.5 (31.0-37.0) g/dL RDW 12.7 (11.5-15.5) % Plt Count 183 (150-450) k/uL MPV 8.7 Neutrophils % 72 % Lymphocytes % 20 % Monocytes % 5 % Eosinophils % 2 % Basophils % 1 % Neutrophils # 4.8 (1.3-7.7) k/uL Lymphocytes # 1.3 (1.0-4.8) k/uL Monocytes # 0.3 (0-1.0) k/uL Eosinophils # 0.1 (0-0.7) k/uL Basophils # 0.1 (0-0.2) k/uL Sodium (137-145) mmol/L Potassium (3.5-5.1) mmol/L Chloride (98-107) mmol/L Carbon Dioxide (22-30) mmol/L Anion Gap mmol/L BUN (9-20) mg/dL Creatinine (0.66-1.25) mg/dL Est GFR (CKD-EPI)AfAm (>60 ml/min/1.73 sqM) Est GFR (CKD-EPI)NonAf (>60 ml/min/1.73 sqM) Glucose (74-99) mg/dL Calcium (8.4-10.2) mg/dL Total Bilirubin (0.2-1.3) mg/dL AST (17-59) U/L ALT (4-49) U/L Alkaline Phosphatase (38-126) U/L Total Protein (6.3-8.2) g/dL Albumin (3.5-5.0) g/dL Lipase (23-300) U/L Urine Color Colorless Urine Appearance Clear (Clear) Urine pH 6.0 (5.0-8.0) Ur Specific [place] 1.011 (1.001-1.035) Urine Protein Negative (Negative) Urine Glucose (UA) Negative (Negative) Urine Ketones Negative (Negative) Urine Blood Negative (Negative) Urine Nitrite Negative (Negative) Urine Bilirubin Negative (Negative) Urine Urobilinogen <2.0 (<2.0) mg/dL Ur Leukocyte Esterase Negative (Negative) Urine Opiates Screen Not Detected (NotDetected) Ur Oxycodone Screen Not Detected (NotDetected) Urine Methadone Screen Not Detected (NotDetected) Ur Barbiturates Screen Not Detected (NotDetected) U Tricyclic Antidepress Not Detected (NotDetected) Ur Phencyclidine Scrn Not Detected (NotDetected) Ur Amphetamines Screen Not Detected (NotDetected) U Methamphetamines Scrn Not Detected (NotDetected) U Benzodiazepines Scrn Not Detected (NotDetected) Urine Cocaine Screen Not Detected (NotDetected) U Marijuana (THC) Screen Not Detected (NotDetected) 10/09/23 Range/Units 18:11 WBC (3.8-10.6) k/uL RBC (4.30-5.90) m/uL Hgb (13.0-17.5) gm/dL Hct (39.0-53.0) % MCV (80.0-100.0) fL MCH (25.0-35.0) pg MCHC (31.0-37.0) g/dL RDW (11.5-15.5) % Plt Count (150-450) k/uL MPV Neutrophils % % Lymphocytes % % Monocytes % % Eosinophils % % Basophils % % Neutrophils # (1.3-7.7) k/uL Lymphocytes # (1.0-4.8) k/uL Monocytes # (0-1.0) k/uL Eosinophils # (0-0.7) k/uL Basophils # (0-0.2) k/uL Sodium 141 (137-145) mmol/L Potassium 4.0 (3.5-5.1) mmol/L Chloride 107 (98-107) mmol/L Carbon Dioxide 19 L (22-30) mmol/L Anion Gap 15 mmol/L BUN 8 L (9-20) mg/dL Creatinine 0.67 (0.66-1.25) mg/dL Est GFR (CKD-EPI)AfAm >90 (>60 ml/min/1.73 sqM) Est GFR (CKD-EPI)NonAf >90 (>60 ml/min/1.73 sqM) Glucose 129 H (74-99) mg/dL Calcium 10.0 (8.4-10.2) mg/dL Total Bilirubin 0.4 (0.2-1.3) mg/dL AST 49 (17-59) U/L ALT 95 H (4-49) U/L Alkaline Phosphatase 96 (38-126) U/L Total Protein 7.5 (6.3-8.2) g/dL Albumin 5.1 H (3.5-5.0) g/dL Lipase 119 (23-300) U/L Urine Color Urine Appearance (Clear) Urine pH (5.0-8.0) Ur Specific [place] (1.001-1.035) Urine Protein (Negative) Urine Glucose (UA) (Negative) Urine Ketones (Negative) Urine Blood (Negative) Urine Nitrite (Negative) Urine Bilirubin (Negative) Urine Urobilinogen (<2.0) mg/dL Ur Leukocyte Esterase (Negative) Urine Opiates Screen (NotDetected) Ur Oxycodone Screen (NotDetected) Urine Methadone Screen (NotDetected) Ur Barbiturates Screen (NotDetected) U Tricyclic Antidepress (NotDetected) Ur Phencyclidine Scrn (NotDetected) Ur Amphetamines Screen (NotDetected) U Methamphetamines Scrn (NotDetected) U Benzodiazepines Scrn (NotDetected) Urine Cocaine Screen (NotDetected) U Marijuana (THC) Screen (NotDetected) Disposition Is patient prescribed a controlled substance at d/c from ED?: No <Stewart Hernandez - Last Filed: 10/09/23 21:22> Is patient prescribed a controlled substance at d/c from ED?: No Time of Disposition: 23:14 <Stewart Levy - Last Filed: 10/10/23 01:27> Clinical Impression: Psychosis, Schizophrenia, Abdominal pain, Nausea and vomiting, Auditory hallucinations Disposition: HOME SELF-CARE Condition: Fair Instructions (If sedation given, give patient instructions): Abdominal Pain (ED) Referrals: Kia Luque MD [Primary Care Provider] - 1-2 days
[2023-10-09] MEDS: LORazepam 2 MG/ML INJ IV STA (18:12)
[2023-10-09] MEDS: KETOROLAC 15 MG/ML 1 ML VIAL IVP STA (18:13)
[2023-10-09] MEDS: ONDANSETRON 4 MG/2 ML VIAL IVP STA (18:13)
[2023-10-09] MEDS: SODIUM CHLORIDE 0.9% 1,000 ML IV STA ×2 (18:15→19:02)
[2023-10-09 18:21] LABS: Basophils # (A) 0.1 k/uL (0-0.2); Basophils % (A) 1 %; Eosinophils # (A) 0.1 k/uL (0-0.7); Eosinophils % (A) 2 %; HCT 47.1 % (39.0-53.0); HGB 16.2 gm/dL (13.0-17.5); Lymphocytes # (A) 1.3 k/uL (1.0-4.8); Lymphocytes % (A) 20 %; MCH 29.6 pg (25.0-35.0); MCHC 34.5 g/dL (31.0-37.0); MCV 85.8 fL (80.0-100.0); Mean Platelet Volume 8.7; Monocytes # (A) 0.3 k/uL (0-1.0); Monocytes % (A) 5 %; Neutrophils # (A) 4.8 k/uL (1.3-7.7); Neutrophils % (A) 72 %; Platelet Count 183 k/uL (150-450); RBC 5.49 m/uL (4.30-5.90); RDW 12.7 % (11.5-15.5); WBC 6.6 k/uL (3.8-10.6)
[2023-10-09 18:29] LABS: Appearance,Urine Clear (Clear); Bilirubin,Urine Negative (Negative); Blood,Urine Negative (Negative); Color,Urine Colorless; Glucose,Urine (UA) Negative (Negative); Ketones,Urine Negative (Negative); Leukocyte Esterase,Urine Negative (Negative); Nitrite,Urine Negative (Negative); Protein,Urine Negative (Negative); Specific Gravity,Urine 1.011 (1.001-1.035); Urobilinogen,Urine <2.0 mg/dL (<2.0)
[2023-10-09 18:31] LABS: ALT 95 U/L (4-49); AST 49 U/L (17-59); African American GFR (CKD) >90 (>60 ml/min/1.73 sqM); Albumin 5.1 g/dL (3.5-5.0); Alkaline Phosphatase 96 U/L (38-126); Anion Gap 15 mmol/L; Blood Urea Nitrogen 8 mg/dL (9-20); Carbon Dioxide 19 mmol/L (22-30); Chloride 107 mmol/L (98-107); Glucose 129 mg/dL (74-99); Lipase 119 U/L (23-300); Non-African American GFR(CKD) >90 (>60 ml/min/1.73 sqM); Sodium 141 mmol/L (137-145); Total Bilirubin 0.4 mg/dL (0.2-1.3); Total Protein 7.5 g/dL (6.3-8.2)
[2023-10-09 18:44] LABS: Amphetamine Screen,Urine Not Detected (NotDetected); Barbiturate Screen,Urine Not Detected (NotDetected); Benzodiazepines Screen,Urine Not Detected (NotDetected); Cocaine Screen,Urine Not Detected (NotDetected); Methadone Screen, Urine Not Detected (NotDetected); Opiate Screen,Urine Not Detected (NotDetected); Oxycodone Screen, Urine Not Detected (NotDetected); Phencyclidine Screen,Urine Not Detected (NotDetected); Tricyclic Antidepressant,Urine Not Detected (NotDetected); Urn Cannabinoid Scrn Not Detected (NotDetected)
--- NOTE | 2023-10-09 20:21 | CT ---
EXAMINATION TYPE: CT abdomen pelvis w con CT DLP: 1401.2 mGycm, Automated exposure control for dose reduction was used. DATE OF EXAM: 10/09/2023 6:39 PM COMPARISON: None. CLINICAL INDICATION:Male, 28 years old with history of abdominal pain, acute, nonlocalized; LLQ abdom inal pain TECHNIQUE: Axial CT of the abdomen and pelvis. Sagittal and coronal reformats were created on a [employer] workstation. Contrast used:100 mL of Isovue 300 with IV Contrast, (none if empty) Oral contrast used: without Oral Contrast (none if empty) FINDINGS: LOWER CHEST: Unremarkable heart and lungs. Small sliding hiatal hernia. ABDOMEN LIVER: Appears at least mildly fatty infiltrated. Otherwise unremarkable. GALLBLADDER AND BILE DUCTS: Unremarkable gallbladder. No biliary ductal dilatation. PANCREAS: Unremarkable. SPLEEN: Unremarkable. ADRENAL GLANDS: Unremarkable. KIDNEYS AND URETERS: Right kidney in the usual location. Left kidney is located in the upper left pel vis. Kidneys are concentrating and excreting contrast symmetrically. There is no hydronephrosis. Janene l artery and vein appear as normal. Left renal artery appears to arise from the left common iliac art jossy. Venous system of the left kidney appears to drain into the left common iliac vein, right common iliac vein as it joins to form the IVC, and a component which joins with a lumbar vein to form a "lef t renal vein" which is near its usual location. PELVIS BLADDER: Unremarkable REPRODUCTIVE: Unremarkable prostate. ABDOMEN & PELVIS STOMACH AND BOWEL: Heterogeneous material in nondistended stomach with a small amount of increased at tenuation material distally. Duodenal sweep is patent, however appears narrowed and flattened as it c rosses between the pancreatic head and the IVC; clinical significance if any is uncertain-- correlate clinically for any SMA syndrome-like symptoms of duodenal obstruction. More distally, duodenum is normal caliber and there are no significantly distended small bowel loops seen to suggest obstruction. Normal appendix. Moderate colonic stool proximally, with less distally. No focal acute abnormality is seen. PERITONEUM/RETROPERITONEUM: No evidence of pneumoperitoneum or free fluid. VASCULATURE: Aorta and major branches are grossly unremarkable. No AAA. Portal veins are enhancing. Splenic vein is patent. Normal caliber IVC. LYMPH NODES: No enlarged nodes by CT size criteria. SOFT TISSUE/ABDOMINAL WALL: Small lobular supraumbilical fat-containing hernia. MUSCULOSKELETAL: No acute osseous abnormalities. IMPRESSION: 1. No acute abnormality seen to explain abdominal pain. 2. Duodenal sweep is patent, however appears narrowed and flattened as it crosses between the pancre atic head and the IVC. Clinical significance, if any, is uncertain-- correlate clinically for any SMA syndrome-like symptoms of duodenal obstruction. 3. Left pelvic kidney. No evidence of hydronephrosis bilaterally. 4. Small hiatal hernia. 5. Hepatic steatosis.
[2023-10-09 23:33] VITALS: BP 144/99; PULSE 104; RESP 17
== END 2023-10-09 23:28 | disposition home or self-care (01) ==
LOC: EC 17:12
DX: F29 Unspecified psychosis not due to a substance or known physiological condition (principal); F20.9 Schizophrenia, unspecified; K76.0 Fatty (change of) liver, not elsewhere classified; K44.9 Diaphragmatic hernia without obstruction or gangrene
CPT/HCPCS: 82075; 36415; 80053; 83690; 85025; 81003; 80306; 74177; 99285; 96374; 96375 ×2; 96361 ×5; J2060; J2405; J1885; Q9967

== ENCOUNTER 2023-11-01 16:51 | Emergency (ER) | payer MEDICARE, OTHER ==
[2023-11-01 17:18] VITALS: TEMP 98
--- NOTE | 2023-11-01 18:07 | ED ---
General Adult HPI - General Chief complaint: Nausea/Vomiting/Diarrhea Stated complaint: NV, ears ringing Time Seen by Provider: 11/01/23 17:45 Source: patient, family, RN notes reviewed Mode of arrival: ambulatory Limitations: no limitations - History of Present Illness Initial comments: 28-year-old male with history of schizophrenia presenting for psychosis. Patient states the voices in his ears has been worsening over the past day and explains that wearing earplugs helps the noise. Denies suicidal or homicidal ideations. He is complaining of some nonspecific nausea and vomiting and a headache. He takes Haldol for schizophrenia. - Related Data Home Medications Medication Instructions Recorded Confirmed Benztropine Mesylate [Cogentin] 1 mg PO BID 10/09/23 10/09/23 OXcarbazepine 300 mg PO BID 10/09/23 10/09/23 Paliperidone IM [Invega Sustenna] 234 mg IM Q28D 10/09/23 10/09/23 gemfibroziL [Lopid] 600 mg PO BID 10/09/23 10/09/23 haloperidoL [Haldol] 5 mg PO DAILY 10/09/23 10/09/23 haloperidoL [Haldol] 10 mg PO HS 10/09/23 10/09/23 Allergies Allergy/AdvReac Type Severity Reaction Status Date / Time No Known Allergies Allergy Verified 10/09/23 19:21 Review of Systems ROS Statement: Those systems with pertinent positive or pertinent negative responses have been documented in the HPI. ROS Other: All systems not noted in ROS Statement are negative. Past Medical History Past Medical History: No Reported History Additional Past Medical History / Comment(s): Lymes disease. History of Any Multi-Drug Resistant Organisms: None Reported Past Surgical History: Hernia Repair Past Psychological History: No Psychological Hx Reported Past Alcohol Use History: None Reported Past Drug Use History: None Reported - Past Family History Mother History Unknown: Yes Additional Family Medical History / Comment(s): Pt refuses to answer. Father History Unknown: Yes Additional Family Medical History / Comment(s): Pt refuses to answer. General Exam Limitations: no limitations General appearance: alert, anxious Eye exam: Present: normal appearance, PERRL, EOMI. Absent: scleral icterus, conjunctival injection, periorbital swelling ENT exam: Present: normal exam, mucous membranes moist Neck exam: Present: normal inspection. Absent: tenderness, meningismus, lymphadenopathy Respiratory exam: Present: normal lung sounds bilaterally. Absent: respiratory distress, wheezes, rales, rhonchi, stridor Cardiovascular Exam: Present: regular rate, normal rhythm, normal heart sounds. Absent: systolic murmur, diastolic murmur, rubs, gallop, clicks GI/Abdominal exam: Present: soft, normal bowel sounds. Absent: distended, tenderness, guarding, rebound, rigid Neurological exam: Present: alert, oriented X3, CN II-XII intact Psychiatric exam: Present: anxious Skin exam: Present: warm, dry, intact, normal color. Absent: rash Course Vital Signs 11/01/23 11/01/23 11/01/23 16:54 18:38 21:59 Temperature 98 F Pulse Rate 126 H 124 H 100 Respiratory 20 18 18 Rate Blood Pressure 135/96 145/103 132/95 O2 Sat by Pulse 95 96 97 Oximetry Medical Decision Making - Medical Decision Making Was pt. sent in by a medical professional or institution (, PA, MINUTE CLERK, urgent care, hospital, or correction...) When possible be specific @ -No Did you speak to anyone other than the patient for history (EMS, parent, family, police, friend...)? What history was obtained from this source @ -Patient's mother supplemented history Did you review nursing and triage notes (agree or disagree)? Why? @ -I reviewed and agree with nursing and triage notes Were old charts reviewed (outside hosp., previous admission, EMS record, old EKG, old radiological studies, urgent care reports/EKG's, correction records)? Report findings @ -No old charts were reviewed Differential Diagnosis (chest pain, altered mental status, abdominal pain women, abdominal pain men, vaginal bleeding, weakness, fever, dyspnea, syncope, headache, dizziness, GI bleed, back pain, seizure, CVA, palpatations, mental health, musculoskeletal)? @ -Acute psychosis, schizophrenia, dehydration, anxiety, viral gastroenteritis EKG interpreted by me (3pts min.). @ -None X-rays interpreted by me (1pt min.). @ -None done CT interpreted by me (1pt min.). @ -None done U/S interpreted by me (1pt. min.). @ -None done What testing was considered but not performed or refused? (CT, X-rays, U/S, labs)? Why? @ -None What meds were considered but not given or refused? Why? @ -None Did you discuss the management of the patient with other professionals (professionals i.e. , PA, MINUTE CLERK, lab, RT, psych nurse, healthcare social worker, engineering coordinator, teacher, assignment officer, nurse case manager)? Give summary @ -Discussed case with EPS. EPS evaluated patient and deemed patient safe for discharge. Patient has follow-up with psychiatrist on Sunday. Safety plan discussed Was smoking cessation discussed for >3mins.? @ -No Was critical care preformed (if so, how long)? @ -No Were there social determinants of health that impacted care today? How? (Homelessness, low income, unemployed, alcoholism, drug addiction, transportation, low edu. Level, literacy, decrease access to med. care, care home, rehab)? @ -No Was there de-escalation of care discussed even if they declined (Discuss DNR or withdrawal of care, Hospice)? DNR status @ -No What co-morbidities impacted this encounter? (DM, HTN, Smoking, COPD, CAD, Cancer, CVA, ARF, Chemo, Hep., AIDS, mental health diagnosis, sleep apnea, morbid obesity)? @ -Schizophrenia Was patient admitted / discharged? Hospital course, mention meds given and route, prescriptions, significant lab abnormalities, going to OR and other pertinent info. @ -Patient was discharged. Patient was seen and evaluated for acute psychosis. Patient denies SI or HI. Blood pressure is elevated and patient is tachycardic upon initial examination. Patient is given IV Ativan, Toradol, and Zofran for symptoms. EPS evaluated patient and deemed safe for discharge. Upon reexamination, patient states symptoms are resolved and is feeling much better. Strict return symptoms discussed. Safety plan discussed. Follow-up with psychiatry appointment on Sunday. Heart rate and blood pressure were reduced upon repeat evaluation. Patient discharged in stable condition. Case discussed with Dr. Levy Undiagnosed new problem with uncertain prognosis? @ -No Drug Therapy requiring intensive monitoring for toxicity (Heparin, Nitro, Insulin, Cardizem)? @ -No Were any procedures done? @ -No Diagnosis/symptom? @ -Acute psychosis secondary to schizophrenia Acute, or Chronic, or Acute on Chronic? @ -Acute Uncomplicated (without systemic symptoms) or Complicated (systemic symptoms)? @ -Complicated Side effects of treatment? @ -No Exacerbation, Progression, or Severe Exacerbation? @ -No Poses a threat to life or bodily function? How? (Chest pain, USA, PR, pneumonia, PE, COPD, DKA, ARF, appy, cholecystitis, CVA, Diverticulitis, Homicidal, Suicidal, threat to staff... and all critical care pts) @ -No - Lab Data Result diagrams: 11/01/23 18:43 11/01/23 18:43 Lab Results 11/01/23 11/01/23 11/01/23 Range/Units 18:43 18:43 18:43 WBC 8.0 (3.8-10.6) k/uL RBC 5.42 (4.30-5.90) m/uL Hgb 17.2 (13.0-17.5) gm/dL Hct 45.8 (39.0-53.0) % MCV 84.5 (80.0-100.0) fL MCH 31.7 (25.0-35.0) pg MCHC 37.5 H (31.0-37.0) g/dL RDW 13.4 (11.5-15.5) % Plt Count 186 (150-450) k/uL MPV 9.5 Neutrophils % 72 % Lymphocytes % 20 % Monocytes % 6 % Eosinophils % 1 % Basophils % 1 % Neutrophils # 5.8 (1.3-7.7) k/uL Lymphocytes # 1.6 (1.0-4.8) k/uL Monocytes # 0.5 (0-1.0) k/uL Eosinophils # 0.1 (0-0.7) k/uL Basophils # 0.0 (0-0.2) k/uL Hyperchromasia Slight Sodium 139 (137-145) mmol/L Potassium 4.3 (3.5-5.1) mmol/L Chloride 106 (98-107) mmol/L Carbon Dioxide 23 (22-30) mmol/L Anion Gap 10 mmol/L BUN 11 (9-20) mg/dL Creatinine 0.64 L (0.66-1.25) mg/dL Est GFR (CKD-EPI)AfAm >90 (>60 ml/min/1.73 sqM) Est GFR (CKD-EPI)NonAf >90 (>60 ml/min/1.73 sqM) Glucose 121 H (74-99) mg/dL Calcium 9.6 (8.4-10.2) mg/dL Total Bilirubin 0.6 (0.2-1.3) mg/dL AST 37 (17-59) U/L ALT 77 H (4-49) U/L Alkaline Phosphatase 83 (38-126) U/L Total Protein 7.6 (6.3-8.2) g/dL Albumin 5.0 (3.5-5.0) g/dL Urine Opiates Screen Not Detected (NotDetected) Ur Oxycodone Screen Not Detected (NotDetected) Urine Methadone Screen Not Detected (NotDetected) Ur Barbiturates Screen Not Detected (NotDetected) U Tricyclic Antidepress Not Detected (NotDetected) Ur Phencyclidine Scrn Not Detected (NotDetected) Ur Amphetamines Screen Not Detected (NotDetected) U Methamphetamines Scrn Not Detected (NotDetected) U Benzodiazepines Scrn Detected H (NotDetected) Urine Cocaine Screen Not Detected (NotDetected) U Marijuana (THC) Screen Not Detected (NotDetected) Disposition Clinical Impression: Schizophrenia, acute Disposition: HOME SELF-CARE Condition: Stable Instructions (If sedation given, give patient instructions): Schizophrenia (ED) Additional Instructions: Follow-up for appointment with psychiatrist on Sunday. Please return to the Emergency Department if symptoms worsen or any other concerns. Is patient prescribed a controlled substance at d/c from ED?: No Referrals: Kia Luque MD [Primary Care Provider] - 1-2 days Time of Disposition: 21:53
[2023-11-01] MEDS: ONDANSETRON 4 MG/2 ML VIAL IVP STA (18:46)
[2023-11-01] MEDS: KETOROLAC 15 MG/ML 1 ML VIAL IVP STA (18:47)
[2023-11-01] MEDS: LORazepam 2 MG/ML INJ IV STA ×2 (18:59→22:01)
[2023-11-01 19:11] VITALS: RESP 18
[2023-11-01 19:36] LABS: Amphetamine Screen,Urine Not Detected (NotDetected); Barbiturate Screen,Urine Not Detected (NotDetected); Benzodiazepines Screen,Urine Detected (NotDetected); Cocaine Screen,Urine Not Detected (NotDetected); Methadone Screen, Urine Not Detected (NotDetected); Opiate Screen,Urine Not Detected (NotDetected); Oxycodone Screen, Urine Not Detected (NotDetected); Phencyclidine Screen,Urine Not Detected (NotDetected); Tricyclic Antidepressant,Urine Not Detected (NotDetected); Urn Cannabinoid Scrn Not Detected (NotDetected)
[2023-11-01 19:38] LABS: Basophils % (A) 1 %; Eosinophils # (A) 0.1 k/uL (0-0.7); Eosinophils % (A) 1 %; HCT 45.8 % (39.0-53.0); HGB 17.2 gm/dL (13.0-17.5); Hyperchromasia Slight; Lymphocytes # (A) 1.6 k/uL (1.0-4.8); Lymphocytes % (A) 20 %; MCH 31.7 pg (25.0-35.0); MCHC 37.5 g/dL (31.0-37.0); MCV 84.5 fL (80.0-100.0); Mean Platelet Volume 9.5; Monocytes # (A) 0.5 k/uL (0-1.0); Monocytes % (A) 6 %; Neutrophils # (A) 5.8 k/uL (1.3-7.7); Neutrophils % (A) 72 %; Platelet Count 186 k/uL (150-450); RBC 5.42 m/uL (4.30-5.90); RDW 13.4 % (11.5-15.5)
[2023-11-01 19:44] LABS: ALT 77 U/L (4-49); AST 37 U/L (17-59); African American GFR (CKD) >90 (>60 ml/min/1.73 sqM); Alkaline Phosphatase 83 U/L (38-126); Anion Gap 10 mmol/L; Blood Urea Nitrogen 11 mg/dL (9-20); Calcium 9.6 mg/dL (8.4-10.2); Carbon Dioxide 23 mmol/L (22-30); Chloride 106 mmol/L (98-107); Glucose 121 mg/dL (74-99); Non-African American GFR(CKD) >90 (>60 ml/min/1.73 sqM); Potassium 4.3 mmol/L (3.5-5.1); Sodium 139 mmol/L (137-145); Total Bilirubin 0.6 mg/dL (0.2-1.3); Total Protein 7.6 g/dL (6.3-8.2)
[2023-11-01 22:24] VITALS: BP 132/95; PULSE 100
== END 2023-11-01 22:06 | disposition home or self-care (01) ==
LOC: EC 16:51
DX: R11.2 Nausea with vomiting, unspecified (principal); H92.09 Otalgia, unspecified ear; F20.9 Schizophrenia, unspecified
CPT/HCPCS: 82075; 36415; 80053; 85025; 80306; 99284; 96374; 96375 ×2; 96376; J2060; J2405; J1885